=== PATIENT | male | born 1965 | race Asian ===

== ENCOUNTER 2018-11-17 08:32 | Inpatient (IN) | payer OTHER ==
[~2018-11-17] VITALS: Ht 180.3 cm; Wt 73.0 kg
--- NOTE | 2018-11-17 09:32 | NUR ---
PATIENT AAOX4 SPEAKS ONLY MONTSERRATIAN. BY USING THE MONTSERRATIAN INTEREPRETER LINE, PT STS HE HAS BEEN FEELING UNCOMFORTABLE WITH CHEST TIGHTNESS AND NUMBNESS IN BILATERAL UPPER AND LOWER EXTREMITES. HE STS HE FEELS A "POPPING" IN HIS HEAD. PT IS A FORMER SMOKER WITH A HX OF IRREGULAR HR, HYPERTHYROIDISM, DM, AND HTN. BREATHING E/U, SKIN WARM, DRY AND INTACT. PT PLACED ON ALL MONITORS FOR FURTHER OBSERVATION. WILL CONTINUE TO MONITOR.
--- NOTE | 2018-11-17 10:21 | NUR ---
MEDICATED PER MD ORDERS- SEE EMR.
[2018-11-17 10:28] LABS: BASOPHIL % 0.5 % (0-2); PLATELET COUNT 226 x10^3mcL (130-400); RED CELL DISTRIBUTION WIDTH 13.3 % (11.5-14.5)
[2018-11-17 10:34] LABS: CALCIUM 8.8 mg/dL (8.5-10.1); CARBON DIOXIDE 29.9 mmol/L (21-32); CHLORIDE SERUM 110 mmol/L (98-107); CREATININE SERUM 0.7 mg/dL (0.7-1.3); GFR1 > 60 mL/min; GLUCOSE SERUM 99 mg/dL (74-106); POTASSIUM SERUM 3.7 mmol/L (3.5-5.1); SODIUM SERUM 148 mmol/L (136-145)
[2018-11-17 10:38] LABS: ALBUMIN 3.9 g/dL (3.4-5.0); ALKALINE PHOSPHATASE 51 U/L (46-116); ALT/SGPT 68 U/L (16-63); AST/SGOT 29 U/L (15-37); BILIRUBIN TOTAL 0.7 mg/dL (0.20-1.00); LIPASE 119 IU/L (73-393); TOTAL PROTEIN, SERUM 7.3 g/dL (6.4-8.2); TRIGLYCERIDES 58 mg/dL (<150)
[2018-11-17 10:41] LABS: CHOLESTEROL 85 mg/dL (<200); CHOLESTEROL/HDL RATIO 2.7; HDL CHOLESTEROL 32 mg/dL (40-60)
[2018-11-17 10:48] LABS: microscopic required? NO
[2018-11-17 11:04] LABS: T3 TOTAL 1.45 ng/mL
[2018-11-17 11:05] LABS: urine erythrocyte NEGATIVE (NEGATIVE)
[2018-11-17 11:08] LABS: FREE T4 2.54 ng/dL (0.76-1.46)
[2018-11-17 11:12] LABS: FREE THYROXINE INDEX 6.8 ug/dL (1.4-4.5); T4(THYROXINE) 15.4 ug/dL (4.7-13.3)
--- NOTE | 2018-11-17 11:16 | NUR ---
PATIENT LYING ON GURNY- NO ACUTE DISTRESS NOTED. WILL CONTINUE TO MONITOR.
[2018-11-17 11:25] LABS: AMPHETAMINE QUAL UR NONE DETECTED (See below)
[2018-11-17] MEDS ORDERED: TOPROL XL25 MG PO (12:46)
[2018-11-17] MEDS ORDERED: GLU500 PO (12:48)
[2018-11-17] MEDS ORDERED: LIPI10 PO (12:48)
[2018-11-17] MEDS ORDERED: ELIQUIS5 MG PO (12:50)
[2018-11-17] MEDS ORDERED: AMIODARONE200 MG PO (12:50)
[2018-11-17] MEDS ORDERED: OMEPRAZOLE40 M1 PO (12:51)
[2018-11-17] MEDS ORDERED: ZANTAC 150150 MG PO (12:51)
[2018-11-17] MEDS ORDERED: METHIMAZOLE5 MG PO (12:52)
[2018-11-17] MEDS ORDERED: LOSARTAN POTASS25 M1 PO (12:52)
--- NOTE | 2018-11-17 13:00 | NUR ---
REPORT TAKEN FROM MARLIN IN ER, ROOM SET UP COMPLETE, PENDING PT ARRIVAL.
--- NOTE | 2018-11-17 13:00 | NUR ---
REPORT PROVIDED TO RAYSHAWN SAAVEDRA FOR CONTINUED CARE OF PATIENT.
--- NOTE | 2018-11-17 13:13 | NUR ---
RECEIVED PT FROM ED VIA [facility], CAME IN DUE TO CHEST PAIN AND PALPITATIONS. AAOX4. DENIES HEADACHE/DIZZINESS. ABLE TO FOLLOW COMMANDS. NO SOB NOTED. STATED THAT HE HAS MILD PALPITATIONS, FV=722, AFIB ON THE MONITOR. DENIES ABDOMINAL DISCOMFORT. BOWEL SOUNDS ACTIVE. VOIDS. IV SITE ON THE RFA GAUGE 22 IS PATENT AND INTACT. SIDE RAILS UPX2. CALL LIGHT ON REACH. WILL ENDORSE TO PRIMARY NURSE KERI FOR CONTINUITY OF CARE
[2018-11-17 13:25] VITALS: BP 135/73
[2018-11-17 13:30] VITALS: Ht 180.3 cm; Wt 73.0 kg
--- NOTE | 2018-11-17 13:38 | NUR ---
ENDORSED TO PRIMARY NURSE KERI FOR CONTINUITY OF CARE
--- NOTE | 2018-11-17 13:55 | NUR ---
1330: PATIENT RESTING COMFORTABLY AT THIS TIME, ABLE TO MAKE NEEDS KNOWN USING GESTURES, DENIED ACUTE PAIN AT THIS TIME, WILL CONTINUE TO MONITOR.
--- NOTE | 2018-11-17 19:14 | NUR ---
PT TOLERATED TREATMENT WELL, RESTING COMFORTABLY AT TIME OF REPORT, REPORT GIVEN TO AUTOMATIC NAILING MACHINE FEEDER NURSE AT THE BEDSIDE, CARE ENDORSED
--- NOTE | 2018-11-17 19:30 | NUR ---
AWAKE AND ALERT, ORIENTED TO NAME, PLACE, TIME AND SITUATION. SPEECH CLEAR AND APPROPRIATE. BREATHING EVEN AND UNLABORED ON ROOM AIR. AFIB ON TELE, HR IN THE LOW 100'S/MIN. DENIES HAVING CHEST PAIN BUT STATED HAS ABDOMINAL DISCOMFORT. UNABLE TO CLEARLY DESCRIBE BUT STATED HE HAS BEEN HAVING THIS CONDITION ON AND OFF FOR PAST 10 YEARS. NOTED HX OF GASTRITIS. INFORMED DR. SHAW. 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
[2018-11-17 19:43] VITALS: BP 119/61
--- NOTE | 2018-11-17 21:02 | NUR ---
CALLED PHARMACY REGARDING UNVERIFIED RANITIDINE ORDER. PER PHARMACIST NOT IN FORMULARY. PAGED DR. SHAW
--- NOTE | 2018-11-17 21:44 | NUR ---
ORDER RECEIVED FOR TUMS PO. ADMINISTERED.
--- NOTE | 2018-11-17 22:56 | NUR ---
EYES CLOSED, BREATHING EVEN AND UNLABORED. LYING ON HIS RIGHT SIDE. UPPER SIDE RAILS KEPT RAISED. CALL LIGHT WITHIN EASY REACH.
[2018-11-18 04:56] VITALS: BP 138/90
--- NOTE | 2018-11-18 06:14 | NUR ---
EYES CLOSED, EASILY AWAKENED. STATED ABLE TO SLEEP FOR A FEW HOURS. BREATHING EVEN AND UNLABORED. SALINE LOCK FREE FROM ERYTHEMA OR SWELLING. CALL LIGHT WITHIN EASY REACH.
[2018-11-18 06:57] LABS: BASOPHIL % 0.4 % (0-2); PLATELET COUNT 238 x10^3mcL (130-400); RED CELL DISTRIBUTION WIDTH 13.4 % (11.5-14.5)
--- NOTE | 2018-11-18 07:17 | NUR ---
in the restroom. pt stated he is okay. endorsed to nurse liz
[2018-11-18 07:25] LABS: CALCIUM 8.8 mg/dL (8.5-10.1); CARBON DIOXIDE 28.7 mmol/L (21-32); CHLORIDE SERUM 109 mmol/L (98-107); CREATININE SERUM 0.7 mg/dL (0.7-1.3); GFR1 > 60 mL/min; GLUCOSE SERUM 99 mg/dL (74-106); MAGNESIUM 2.3 mg/dL (1.8-2.4); PHOSPHOROUS 3.2 mg/dL (2.5-4.9); POTASSIUM SERUM 3.8 mmol/L (3.5-5.1); SODIUM SERUM 147 mmol/L (136-145)
[2018-11-18] MEDS ORDERED: IND20 PO (08:02)
--- NOTE | 2018-11-18 11:36 | NUR ---
AT 0715 - RECEIVED PATIENT FROM NIGHT NURSE. AWAKE, ALERT AND ORIENTED. AMBULATING TO BATHROOM FOR TOILET NEEDS. MONITOR SHOWING SINUS RHYHTM. NO C/O CHEST PAIN. AT 0735 - SITTING ON SIDE OF BED EATING BREAKFAST. AT 0930 - AMBULATING IN HALLWAY. NO SOB NOTED.
[2018-11-18 12:01] VITALS: BP 128/84
[2018-11-18 12:53] VITALS: BP 128/84
--- NOTE | 2018-11-18 14:59 | NUR ---
AT 1430 - PRINTED DISCHARGE INSTRUCTIONS GIVEN AND EXPLAINED TO PATIENT USING MANDARIN PROCESS CONTROL BOARD OPERATOR ID # [id number]. PATIENT VERBALZIED UDNERSTANDING. PRESCRIPTION PROVIDED. IV CATHETER REMOVED INTACT. TAKEN OFF CARDIAC MONITORING. AT 1500 - DISCHARGED HOME AMBULATORY. ESCORTED TO DISCHARGE OFFICE BY [facility]. PATIENT SAYS HE WILL BE GOING BY [facility].
== END 2018-11-18 14:59 | disposition home or self-care (01) | DRG 201 ==
LOC: ED 08:32 → DU 11:57 → EDBEDREQ 11:58 → DU 13:08
PROVIDERS: Specialist; ADMIT Internal Medicine
DX: I48.0 Paroxysmal atrial fibrillation (principal); E87.0 Hyperosmolality and hypernatremia; E11.9 Type 2 diabetes mellitus without complications; E05.90 Thyrotoxicosis, unspecified without thyrotoxic crisis or storm; I10 Essential (primary) hypertension; E78.5 Hyperlipidemia, unspecified; E78.00 Pure hypercholesterolemia, unspecified; K29.70 Gastritis, unspecified, without bleeding; K21.9 Gastro-esophageal reflux disease without esophagitis; Z87.891 Personal history of nicotine dependence; Z79.84 Long term (current) use of oral hypoglycemic drugs
CPT/HCPCS: 82962; 83880; 84439; G0378; J7030